=== PATIENT | female | born 1955 | race Caucasian/White ===

== ENCOUNTER → 2018-01-22 | Outpatient (CLI) | payer MEDICARE, OTHER ==
--- NOTE | 2018-01-22 10:36 | WWHP ---
[facility] - HISTORY AND PHYSICAL DATE OF DICTATION: 01/22/2018 CHIEF COMPLAINT: The patient is here for her routine gynecologic exam and mammogram. HPI: This is a 62-year-old G4, P3-0-1-3 with an LMP of 2003. The patient is without gynecologic complaints and denies any postmenopausal bleeding. PAST MEDICAL HISTORY: Elevated cholesterol, chronic low back problems and osteopenia. MEDICATIONS: 1. Lipitor 20 mg daily. 2. Multivitamin 1 daily. 3. Calcium supplement 400 mg b.i.d. 4. Magnesium supplement 250 mg daily. ALLERGIES: No known drug allergies. PAST SURGICAL HISTORY: Previous D and C, tubal ligation, ear surgery, and colonoscopy which was done in 2009. 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 SOCIAL HISTORY: She denies tobacco and drug use and has 0 to 1 alcohol-containing drinks per week. She has been since 1973 and she is retired. She is now expecting her 8th grandchild. FAMILY HISTORY: Father had an MA. Mother had gastric cancer. Maternal grandmother had breast cancer in her 80s. REVIEW OF SYSTEMS: She has lost 5 pounds over the last year. She denies respiratory or cardiac problems. CARDIAC: Occasional palpitations and she does see a business management associate for this. PHYSICAL EXAM: Blood pressure 116/81, height 5 feet 5 inches, weight 155 pounds. BMI 26. Temperature 97.9, pulse 76. This is a well-developed, well-nourished, white female, who is alert and oriented x3, in no acute distress. HEENT is within normal limits. NECK: Supple without mass or thyromegaly/ CHEST AND LUNGS: Clear to auscultation. HEART: Regular rate and rhythm. Breasts are without mass or discharge. Axillary exam is negative for adenopathy. Back negative for CVA tenderness. ABDOMEN: Soft, nontender, without palpable masses. PELVIC EXAM: External genitalia reveals [id number] atrophy without lesions. Cervix and vagina reveals edgr-ep-[id number] atrophy without lesions. There is no evidence of prolapse. The uterus is mid position nongravid size and nontender. There are no palpable adnexal masses or tenderness. Rectovaginal exam is negative for mass or tenderness and is negative for occult blood. EXTREMITIES: Nontender. IMPRESSION: 1. A 62-year-old menopausal female with normal gynecologic exam. 2. History of osteopenia. PLAN: 1. Pap smear was performed. 2. Self-breast examination was discussed. 3. Screening mammogram will be done today. 4. Osteoporosis prevention was discussed. 5. Bone density screening will be done next year. 6. She will return in 1 year. MMMIKELL / IJN: [id number] /
--- NOTE | 2018-01-24 08:04 | MM ---
Reason for exam: screening (asymptomatic). Last mammogram was performed 1 year and 2 months ago. History: Patient is postmenopausal. Family history of breast cancer in maternal aunt and breast cancer in grandmother at age 70. Took hormonal contraceptives for 11 years beginning at age 18. Took estrogen for 10 months beginning at age 51. Took progesterone for 10 months beginning at age 51. Physical Findings: A clinical breast exam by your physician is recommended on an annual basis and results should be correlated with mammographic findings. MG 3D Screening Mammo W/Cad Bilateral CC and MLO view(s) were taken. Prior study comparison: November 10, 2016, bilateral MG 3d screening mammo w/cad. September 22, 2015, right breast MG 3d work up w/cad RT. There are scattered fibroglandular densities. No significant changes when compared with prior studies. ASSESSMENT: Negative, BI-RAD 1 RECOMMENDATION: Routine screening mammogram of both breasts in 1 year.
== END | disposition home or self-care (01) ==
LOC: WWCWWP 09:10
PROVIDERS: ATTEND Obstetrics & Gynecology
DX: Z12.31 Encounter for screening mammogram for malignant neoplasm of breast (principal)
CPT/HCPCS: 77063; 77067

== ENCOUNTER 2019-01-01 08:03 | Day surgery (SDC) | payer MEDICARE, OTHER ==
[2018-12-31 09:49] VITALS: BMI 25.7
[~2019-01-01 08:03] MED LIST: LACTATED RINGERS 1,000 ML IV SCH; LIDOCAINE 1% 20 ML VIAL (10MG/ML) FOR IV START INTRADERMA PRN
[2019-01-01 08:29] VITALS: RESP 16; TEMP 98.1
[2019-01-01] MEDS ORDERED: PROPOFOL 10 MG/ML 20 ML VIAL IV ONE (09:27)
--- NOTE | 2019-01-01 09:53 | P.PCN ---
Date of Procedure: 01/01/19 Procedure(s) Performed: BRIEF HISTORY: Patient is a 63-year-old pleasant white female, scheduled for an elective colonoscopy as a part of screening for colorectal neoplasia. PROCEDURE PERFORMED: Colonoscopy. PREOPERATIVE DIAGNOSIS: Screening for colon cancer. IV sedation per Anesthesia. PROCEDURE: After informed consent was obtained, the patient, was brought into the endoscopy unit. IV sedation was administered by Anesthesia under continuous monitoring. Digital rectal examination was normal. Initially the Olympus CF- 160 flexible video colonoscope was then inserted in the rectum, gradually advanced into the cecum with mild to moderate difficulty. Careful examination was performed as the scope was gradually being withdrawn. Ileocecal valve and the appendiceal orifice were visualized and appeared normal. Prep was excellent. Mucosa of the cecum, ascending colon, transverse colon, descending colon, sigmoid colon, and rectum appeared normal. Scattered similar diverticulosis. Retroflexion was performed in the rectum and small internal hemorrhoids were seen. The patient tolerated the procedure well. IMPRESSION: Normal-appearing colon from rectum to cecum with no evidence of choledochal neoplasia. Scattered sigmoid diverticulosis. Small internal hemorrhoids RECOMMENDATIONS: Findings of this examination were discussed with the patient as well as her family. She was advised to have a repeat screening colonoscopy in 10 years.
[2019-01-01 10:15] VITALS: BP 161/81; PULSE 67
== END 2019-01-01 11:06 | disposition home or self-care (01) ==
LOC: ORWHC2ENDO 08:03
PROVIDERS: ATTEND Internal Medicine Gastroenterology
DX: Z12.11 Encounter for screening for malignant neoplasm of colon (principal); K57.30 Diverticulosis of large intestine without perforation or abscess without bleeding; K64.8 Other hemorrhoids; E78.5 Hyperlipidemia, unspecified; Z79.899 Other long term (current) drug therapy
CPT/HCPCS: J2704; G0121

== ENCOUNTER → 2019-03-19 | Outpatient (CLI) | payer MEDICARE, OTHER ==
[2019-03-19 11:58] VITALS: BP 134/77; PULSE 62; RESP 18; TEMP 97.1; BMI 26.2
--- NOTE | 2019-03-19 12:30 | P.HPOB ---
History of Present Illness H&P Date: 03/19/19 Chief Complaint: The patient is here for her routine gynecologic exam and ma mmogram. This is a 64-year-old with an LMP of 2003. The patient is without gynecologic complaints. Review of Systems She has gained 3 pounds over the last year. She denies respiratory, cardiac and G.I. problems. She denies maltreatment or problems with falling. : she denies any significant problems with urinary leakage. Past Medical History Past Medical History: Hyperlipidemia Additional Past Medical History / Comment(s): states hx of irregular heart beat- states magnesium helps. Chronic low back problems and osteopenia. 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 History of Any Multi-Drug Resistant Organisms: None Reported Past Surgical History: Tubal Ligation Additional Past Surgical History / Comment(s): D & C., RIGHT INNER EAR SURGERY. Colonoscopy 2019(2nd). Past Anesthesia/Blood Transfusion Reactions: No Reported Reaction, Family History of Problems w/ Anesthesia, Motion Sickness Additional Past Anesthesia/Blood Transfusion Reaction / Comment(s): PATIENT STATES HER RAMSEY HAD BAD REACTION TO ANESTHESIA AND WEARS A BRACELET-STATES RAMSEY HAD GALL BLADDER SURGERY AND IS PSEUDOCHOLINESTERASE DEFICIENT AND SHE CANNOT HAVE SUCCINYLCHOLINE. Past Psychological History: No Psychological Hx Reported Smoking Status: Never smoker Past Alcohol Use History: Occasional Past Drug Use History: None Reported Additional History: She has been since 1973 and is retired. She has 8 grandchildren. - Past Family History Mother Family Medical History: Cancer Additional Family Medical History / Comment(s): STOMACH CANCER Father Family Medical History: Myocardial Infarction ([place]) Grandmother Family Medical History: Cancer Additional Family Medical History / Comment(s): Breast cancer in her 80s. Medications and Allergies Home Medications Medication Instructions Recorded Confirmed Type Atorvastatin [Lipitor] 20 mg PO DAILY 12/31/18 03/19/19 History Magnesium 250 mg PO DAILY 12/31/18 03/19/19 History Multivitamins, Thera [Multivitamin 1 tab PO DAILY 12/31/18 03/19/19 History (formulary)] Calcium Carbonate/Vitamin D3 1 each PO 03/19/19 History [Calcium 500-Vit D3 600 Tablet] Allergies Allergy/AdvReac Type Severity Reaction Status Date / Time No Known Allergies Allergy Verified 03/19/19 11:54 Exam Vital Signs Temp Pulse Resp BP Pulse Ox 03/19/19 11:56 97.1 F L 62 18 134/77 88 L Intake and Output 03/18/19 03/19/19 03/19/19 22:59 06:59 14:59 Other: Weight 71.668 kg Height 5'5", weight 158 pounds, BMI 26.3. This is a well-developed well-nourished white female who is alert and oriented times 3 in no acute distress. HEENT: Within normal limits. NECK: Supple without mass or thyromegaly. CHEST AND LUNGS: Clear to auscultation. HEART: Regular rate and rhythm. BREASTS: Are without mass or discharge. AXILLARY EXAM: Negative for adenopathy. BACK: Negative for CVA tenderness. ABDOMEN: Soft, nontender, without palpable masses. PELVIC EXAM: Normal external genitalia with mild to moderate atrophy. Cervix and vagina appear normal with mild to moderate atrophy. There is no unusual discharge. There is no evidence of prolapse. The uterus is midposition, nongravid size and nontender. There are no palpable adnexal masses or tenderness. RECTAL EXAM: rectal exam was refused by the patient since she recently had a normal colonoscopy. EXTREMITIES: Nontender. IMPRESSION: 1. 64-year-old menopausal female with normal gynecologic exam. 2. History of osteopenia. PLAN: 1. Pap smear was deferred since she had a normal one on 01/22/2018. 2. Self breast awareness was discussed with the patient. 3. Screening mammogram will be done today. 4. Osteoporosis prevention was discussed. I have stressed the importance of adequate calcium, vitamin D and regular exercise. Recommended amounts of calcium and vitamin D were also discussed. Bone density testing will be done today. 5. She did receive a flu shot last fall. 6.She was advised to return in one year for her annual well woman exam.
--- NOTE | 2019-03-19 14:10 | BD ---
EXAMINATION TYPE: Axial Bone Density DATE OF EXAM: 03/19/2019 COMPARISON: NONE CLINICAL HISTORY: Height: 5 FT 5 IN Weight: 158 FRAX RISK QUESTIONS: RISK FACTORS HISTORY OF: Family History of Osteoporosis: YES Active: YES Postmenopausal woman: AGE 51 MEDICATIONS: Additional Medications: ATORVASTATIN Additional History: EXAM MEASUREMENTS: Bone mineral densitometry was performed using the [employer] System. Bone mineral density as measured about the Lumbar spine is: ----- L1-L4(G/cm2): 0.940 T Score Values are as follows: ----- L2: -2.0 ----- L3: -2.1 ----- L4: -1.7 ----- L1-L4: -2.0 Bone mineral density has: DECREASED -1.0 % since study of: 2015 Bone mineral density about the R hip (g/cm2): 0.802 Bone mineral density about the L hip (g/cm2): 0.778 T Score values are as follows: -----R Neck: -1.7 -----L Neck: -1.9 -----R Total: -1.9 -----L Total: -1.4 Bone mineral density has: DECREASED -0.1 % since study of: 2015 IMPRESSION: Osteopenia NOTE: T-SCORE=SD OF THE YOUNG ADULT MEAN.
--- NOTE | 2019-03-21 12:16 | MM ---
Reason for exam: screening (asymptomatic). Last mammogram was performed 1 year and 2 months ago. History: Patient is postmenopausal. Family history of breast cancer in maternal aunt and breast cancer in grandmother at age 70. Took hormonal contraceptives for 11 years beginning at age 18. Took estrogen for 10 months beginning at age 51. Took progesterone for 10 months beginning at age 51. Physical Findings: A clinical breast exam by your physician is recommended on an annual basis and results should be correlated with mammographic findings. MG 3D Screening Mammo W/Cad Bilateral CC and MLO view(s) were taken. Prior study comparison: January 22, 2018, bilateral MG 3d screening mammo w/cad. November 10, 2016, bilateral MG 3d screening mammo w/cad. There are scattered fibroglandular densities. No significant changes when compared with prior studies. ASSESSMENT: Benign, BI-RAD 2 RECOMMENDATION: Routine screening mammogram of both breasts in 1 year.
== END ==
LOC: WWCWWP 11:06
PROVIDERS: ATTEND Obstetrics & Gynecology
DX: Z12.31 Encounter for screening mammogram for malignant neoplasm of breast (principal); M85.80 Other specified disorders of bone density and structure, unspecified site; Z78.0 Asymptomatic menopausal state
CPT/HCPCS: 77063; 77067; 77080

== ENCOUNTER → 2021-01-18 | Outpatient (CLI) | payer MEDICARE ==
--- NOTE | 2021-01-18 13:19 | EST ---
EXERCISE STRESS AGE: 65 SEX: Female HT: 5'5"` WT: 149 lbs. PROTOCOL: Boby STAGE: 2 DURATION OF EXERCISE: 6 minutes HEART RATE REST: 71 BLOOD PRESSURE REST: 133/85 MAXIMUM HEART RATE ACHIEVED: 151 MAXIMUM BLOOD PRESSURE: 199/82 85% MPHR: 130 100% MPHR: 153 METS: 8.3 INDICATIONS: Chest pain. CLINICAL INFORMATION: STRESS DATA: Heart rate 71, pressure is 133/85 mmHg. Baseline EKG showed sinus mechanism. The patient exercised on the treadmill according to Boby protocol for a total of 6 minutes and achieved 8.3 METs. Max heart rate was 151, which is about 99% of maximum predicted heart rate. Maximum blood pressure was 199/82 mmHg. Clinically, the patient did not have any symptoms of chest pain or chest discomfort and the EKG did not show any significant ST or T-wave abnormalities concerning for ischemia. CONCLUSION: 1. Excellent exercise tolerance. 2. Normal EKG in response to exercise. MMODL / IJN: [id number] /
== END | disposition home or self-care (01) ==
LOC: RADNMMAIN 08:39
PROVIDERS: ATTEND Internal Medicine
DX: I21.29 ST elevation (STEMI) myocardial infarction involving other sites (principal)
CPT/HCPCS: 93017

== ENCOUNTER → 2021-06-27 | Outpatient (CLI) | payer MEDICARE ==
--- NOTE | 2021-06-27 14:04 | BD ---
EXAMINATION TYPE: Axial Bone Density DATE OF EXAM: 06/27/2021 COMPARISON: 03/19/2019 CLINICAL HISTORY: Height: 65 IN Weight: 153 LBS RISK FACTORS HISTORY OF: Family History of Osteoporosis: YES MOTHER Active: YES Postmenopausal woman: AGE 50 Take estrogen and/or progesterone medications: NOT NOW How long: TOOK CONTROL PILLS FOR 10 YEARS MEDICATIONS: Additional Medications: CALCIUM, MULTI VIT, ATORVASTATIN, MAGNESIUM, IRON, EXAM MEASUREMENTS: Bone mineral densitometry was performed using the [employer] System. Bone mineral density as measured about the Lumbar spine is: ----- L1-L4(G/cm2): 0.895 T Score Values are as follows: ----- L2: -2.2 ----- L3: -2.3 ----- L4: -2.5 ----- L1-L4: -2.4 Bone mineral density has: Decreased -4.9% since study of: 03/19/2019 Bone mineral density about the R hip (g/cm2): 0.792 Bone mineral density about the L hip (g/cm2): 0.809 T Score values are as follows: -----R Neck: -1.8 -----L Neck: -1.6 -----R Total: -2.1 -----L Total: -1.5 Bone mineral density has: Decreased -1.5% since study of: 03/19/2019 IMPRESSION: Osteopenia (T Score between -2.5 and -1). There is slightly increased risk of fracture and the patient may be considered for treatment. Re-Screen 2-5 years. NOTE: T-SCORE=SD OF THE YOUNG ADULT MEAN.
--- NOTE | 2021-06-28 09:11 | MM ---
Reason for exam: screening (asymptomatic). Last mammogram was performed 1 year ago. History: Patient is postmenopausal. Family history of breast cancer in maternal aunt and breast cancer in grandmother at age 70. Took hormonal contraceptives for 11 years beginning at age 18. Took estrogen for 10 months beginning at age 51. Took progesterone for 10 months beginning at age 51. MG 3D Screening Mammo W/Cad Bilateral CC and MLO view(s) were taken. Prior study comparison: June 15, 2020, bilateral MG 3d screening mammo w/cad. March 19, 2019, bilateral MG 3d screening mammo w/cad. There are scattered fibroglandular densities. Benign appearing bilateral calcifications. There is chronic nodularity in the right breast, stable. No significant changes when compared with prior studies. ASSESSMENT: Benign, BI-RAD 2 RECOMMENDATION: Routine screening mammogram of both breasts in 1 year.
== END | disposition home or self-care (01) ==
LOC: RADMAMWWP 09:41
PROVIDERS: ATTEND Internal Medicine
DX: Z12.31 Encounter for screening mammogram for malignant neoplasm of breast (principal); Z78.0 Asymptomatic menopausal state; Z80.3 Family history of malignant neoplasm of breast; Z13.820 Encounter for screening for osteoporosis; M85.80 Other specified disorders of bone density and structure, unspecified site
CPT/HCPCS: 77063; 77067; 77080

== ENCOUNTER → 2022-08-01 | Outpatient (CLI) | payer MEDICARE ==
[2022-08-01 09:31] VITALS: BP 122/82; PULSE 71; RESP 17; TEMP 98.2
--- NOTE | 2022-08-01 10:26 | P.HPOB ---
History of Present Illness H&P Date: 08/01/22 Chief Complaint: The patient is here for her routine gynecologic exam and ma mmogram. This is a 67-year-old 013 with an LMP of 2003. The patient is without gynecologic complaints. Review of Systems The patient's weight has been stable over the last 2 years. She denies respiratory, cardiac, or G.I. problems. Past Medical History Past Medical History: Hyperlipidemia Additional Past Medical History / Comment(s): states hx of irregular heart beat- states magnesium helps. Chronic low back problems and osteopenia. 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 History of Any Multi-Drug Resistant Organisms: None Reported Past Surgical History: Tubal Ligation Additional Past Surgical History / Comment(s): D & C., RIGHT INNER EAR SURGERY. Colonoscopy 2019(2nd, next after 10yr). Past Anesthesia/Blood Transfusion Reactions: No Reported Reaction, Family History of Problems w/ Anesthesia, Motion Sickness Additional Past Anesthesia/Blood Transfusion Reaction / Comment(s): PATIENT STATES HER RAMSEY HAD BAD REACTION TO ANESTHESIA AND WEARS A BRACELET-STATES RAMSEY HAD GALL BLADDER SURGERY AND IS PSEUDOCHOLINESTERASE DEFICIENT AND SHE CANNOT HAVE SUCCINYLCHOLINE. Past Psychological History: No Psychological Hx Reported Smoking Status: Never smoker Past Alcohol Use History: Occasional Past Drug Use History: None Reported Additional History: She has been since 1973 and is retired. She previously worked for [employer]. She has 8 grandchildren. - Past Family History Mother Family Medical History: Cancer Additional Family Medical History / Comment(s): STOMACH CANCER Father Family Medical History: Myocardial Infarction ([place]) Grandmother Family Medical History: Cancer Additional Family Medical History / Comment(s): Breast cancer in her 80s. Medications and Allergies Home Medications Medication Instructions Recorded Confirmed Type Atorvastatin [Lipitor] 40 mg PO DAILY 12/31/18 08/01/22 History Magnesium 250 mg PO DAILY 12/31/18 08/01/22 History Multivitamins, Thera [Multivitamin 1 tab PO DAILY 12/31/18 08/01/22 History (formulary)] Calcium Carbonate/Vitamin D3 1 each PO DAILY 03/19/19 08/01/22 History [Calcium 500-Vit D3 600 Tablet] Ferrous Sulfate [Iron (65 MG 65 mg PO DAILY 08/01/22 08/01/22 History Elemental)] Allergies Allergy/AdvReac Type Severity Reaction Status Date / Time animal dander Allergy Wheezing Unverified 08/01/22 09:25 house dust mite Allergy Wheezing Unverified 08/01/22 09:25 tree and shrub pollen Allergy Wheezing Unverified 08/01/22 09:25 Exam Vital Signs Temp Pulse Resp BP Pulse Ox 08/01/22 09:28 98.2 F 71 17 122/82 98 Intake and Output 07/31/22 08/01/22 08/01/22 22:59 06:59 14:59 Other: Weight 72.121 kg Height 5 feet 5 inches, weight 159 pounds, BMI 26.5. This is a well-developed well-nourished white female who is alert and oriented times 3 in no acute distress. HEENT: Within normal limits. NECK: Supple without mass or thyromegaly. CHEST AND LUNGS: Clear to auscultation. HEART: Regular rate and rhythm. BREASTS: Are without mass or discharge. AXILLARY EXAM: Negative for adenopathy. BACK: Negative for CVA tenderness. ABDOMEN: Soft, nontender, without palpable masses. PELVIC EXAM: Normal external genitalia with mild atrophy. Just inside of the vulva, there is a white area involving the remnant of the hymenal ring. This appears different than the left side. The area is smooth, nonerythematous, and nontender. This measures approximately 9 x 3 x 3 mm. Cervix and vagina appear normal with mild atrophy. There is no unusual discharge. There is no evidence of prolapse. The uterus is midposition, nongravid size and nontender. There are no palpable adnexal masses or tenderness. RECTAL EXAM: Rectovaginal exam is negative for mass or tenderness and is negative for occult blood. EXTREMITIES: Nontender. IMPRESSION: 1. 67-year-old menopausal female with whitish area involving the hymenal ring reminiscent on the right side of the posterior introitus. Differential diagnosis will include increased atrophic change as well as the possibility of dysplastic neoplasia of the vaginal mucosa. 2. History of osteopenia. PLAN: 1. Pap smears have been discontinued. She has had adequate screening over the years with no history of cervical neoplasia. 2. Self breast awareness was discussed with the patient. We have also discussed symptoms associated with inflammatory breast cancer. 3. Screening mammogram will be done today. 4. The patient has been scheduled for a vaginal mucosa biopsy at that whitish area near the introitus. The appointment is for 9 AM on 08/02/2022. 5. Osteoporosis prevention was discussed. I have stressed the importance of adequate calcium, vitamin D and regular exercise. Recommended amounts of calcium and vitamin D were also discussed. I have recommended repeating bone density testing in 1 year. Her last one was done on 06/27/2021. 6. The patient was advised to return in 1-2 years for her well woman examination.
== END ==
LOC: WWCWWP 09:09
PROVIDERS: ATTEND Obstetrics & Gynecology
DX: Z01.419 Encounter for gynecological examination (general) (routine) without abnormal findings (principal); Z12.31 Encounter for screening mammogram for malignant neoplasm of breast; Z78.0 Asymptomatic menopausal state; E78.5 Hyperlipidemia, unspecified; Z87.39 Personal history of other diseases of the musculoskeletal system and connective tissue; Z91.09 Other allergy status, other than to drugs and biological substances
CPT/HCPCS: 77063; 77067

== ENCOUNTER → 2022-08-02 | Day surgery (SDC) | payer MEDICARE ==
[2022-08-02 09:11] VITALS: BP 146/84; PULSE 85; RESP 17; TEMP 99.1
--- NOTE | 2022-08-02 09:50 | P.PCN ---
Date of Procedure: 08/02/22 Preoperative Diagnosis: Right vaginal introitus lesion of uncertain behavior Postoperative Diagnosis: Same Procedure(s) Performed: Vaginal biopsy Anesthesia: local Surgeon: Didier Clemens Estimated Blood Loss (ml): 1 Pathology: other (Vaginal lesion biopsy) Condition: stable Disposition: same day Indications for Procedure: This was a 67-year-old menopausal female who was found to have an area of white mucosa at the right posterior introitus measuring approximately 9 x 3 x 3 mm. This was at the level of the hymenal ring remanent and was more prominent and had a different color compared to the opposite side. Due to its appearance and uncertain behavior the biopsy was scheduled. Operative Findings: Similar findings as described in the indications section. Description of Procedure: The procedure was discussed with the patient as well as possible risks and complications. All questions were answered. Preprocedure blood pressure was 146/84 with pulse of 85 and temperature of 99.1. The patient was placed in the lithotomy position and the area was prepped with Betadine solution. Approximately 0.5 mL of 1% lidocaine was used for local anesthesia. Following determination of adequate anesthesia a biopsy of the lesion was taken using a cervical biopsy instrument. A small amount of bleeding was noted and this was made hemostatic with a silver nitrate stick. The patient tolerated the procedure well. The biopsy was sent for pathological examination. The postprocedure blood pressure was 138/88 and pulse was 83. The patient was instructed to not do strenuous activity such as running or walking for distance for 1 week. She is also instructed to avoid all sexual activity for 1 week. Is instructed to call if heavy bleeding, unusual pain, fever or problems.
--- NOTE | 2022-08-08 09:16 | P.PN ---
Progress Note - Text Progress Note Date: 08/08/22 OUTPATIENT FOLLOW-UP NOTE TEST(S)/RESULTS: Vaginal biopsy done on 08/02/2022 shows atrophy with findings consistent with lichen sclerosus. There is also mild superficial squamous atypia. METHOD OF NOTIFICATION: The patient was notified by phone. PATIENT COMMENTS: The patient states she has not had any problems after the biopsy. DIAGNOSIS: Asymptomatic lichen sclerosis at the introitus DISCUSSION: We have discussed the nature of lichen sclerosus and how this can be a chronic condition. She denies any pruritus. She was instructed to call she's having problems with pruritus or if she notices any focal vulvar lesions. She understands that this can slightly increase the risk for vulvar cancer. I have recommended at least yearly exams and to call if she notices any focal lesions or changes. PLAN: As above. Patient information on lichen sclerosis will be mailed to the patient.
== END ==
LOC: WWCWWP 09:04
PROVIDERS: ATTEND Obstetrics & Gynecology
DX: L90.0 Lichen sclerosus et atrophicus (principal)
CPT/HCPCS: 88305

== ENCOUNTER → 2023-08-21 | Outpatient (CLI) | payer MEDICARE ==
--- NOTE | 2023-08-21 20:07 | BD ---
EXAMINATION TYPE: Axial Bone Density DATE OF EXAM: 08/21/2023 CLINICAL HISTORY: 68 years old Female. ICD-10 CODE: M85.852 OSTEOPENIA LT HIP Height: 5 ft 4 1/2 in Weight: 159 FRAX RISK QUESTIONS: Alcohol (3 or more units per day): no Family History (Parent hip fracture): no Glucocorticoids (More than 3mos): no (Ex: prednisone, prednisolone, methylprednisolone, dexamethasone, and hydrocortisone). History of Fracture in Adulthood: no Secondary Osteoporosis: 1. Type 1 Diabetes: no 2. Hyperthyroidism: no 3. Menopause before 45: no 4. Malnutrition: no 5. Chronic liver disease: no Rheumatoid Arthritis: no Current Tobacco Use: no RISK FACTORS HISTORY OF: Surgery to Spine/Hip(right/left)/Wrist (right/left): no Family History of Osteoporosis: yes Active: yes Diet low in dairy products/other sources of calcium: no Postmenopausal woman: yes Take estrogen and/or progesterone medications: no Lost more than 2 inches in height since high school: no Frequent falls: no Poor Health: good Hyperparathyroidism: no Adrenal Insufficiency: no MEDICATIONS: Osteoporosis Medications: yes Which medication: fosamax How Lon/23 Additional Medications: fosamax, atorvastatan Additional History: EXAM MEASUREMENTS: Bone mineral densitometry was performed using the [employer] System. Bone mineral density as measured about the Lumbar spine is: ----- L1-L4(G/cm2): 0.939 T Score Values are as follows: ----- L1: -2.5 ----- L2: -1.8 ----- L3: -1.8 ----- L4: -2.2 ----- L1-L4: -2.0 Z Score Values are as follows: ----- L1: -1.0 ----- L2: -0.4 ----- L3: -0.3 ----- L4: -0.8 ----- L1-L4: -0.6 Bone mineral density has: increased 3.3 % since study of: 2020 Bone mineral density about the R hip (g/cm2): 0.718 Bone mineral density about the L hip (g/cm2): 0.775 T Score values are as follows: -----R Neck: -2.3 -----L Neck: -1.9 -----R Total: -2.1 -----L Total: -1.5 Z Score values are as follows: -----R Neck: -0.7 -----L Neck: -0.3 -----R Total: -0.8 -----L Total: -0.2 Bone mineral density has: decreased -0.3 % since study of: 2020 FRAX%s: The graph provided illustrates a 13.8 % chance for a major osteoporotic fx and a 3.3 % chance for the hips probability for fx in 10 years time. IMPRESSION: Osteopenia (T Score between -2.5 and -1). There is slightly increased risk of fracture and the patient may be considered for treatment. Re-Screen 2-5 years. NOTE: T-SCORE=SD OF THE YOUNG ADULT MEAN.
--- NOTE | 2023-08-22 08:00 | MM ---
Reason for Exam: Screening (asymptomatic). Last mammogram was performed 1 year(s) and 1 month(s) ago. Patient History: Menarche at age 12. First Full-Term at age 21. Postmenopausal. Patient has history of breast feeding. Estrogen for 10 months from age 51 until age 52. Progesterone for 10 months from age 51 until age 52. Hormonal Contraceptives for 11 years from age 18 until age 29. Maternal grandmother had breast cancer, age 70. Maternal aunt had breast cancer. Risk Values: Soha 5 year model risk: 1.4%. NCI Lifetime model risk: 4.1%. Prior Study Comparison: 06/15/2020 Bilateral Screening Mammogram, [facility]. 06/27/2021 Bilateral Screening Mammogram, [facility]. 08/01/2022 Bilateral MG 3D screening mammo w/cad, [facility]. Tissue Density: There are scattered fibroglandular densities. Findings: Analyzed By CAD. There is no suspicious group of microcalcifications or new suspicious mass in either breast. Chronic nodularity within the right breast. Overall Assessment: Benign, BI-RAD 2 Management: Screening Mammogram of both breasts in 1 year. A clinical breast exam by your physician is recommended on an annual basis and results should be correlated with mammographic findings. Note on Soha scores and lifetime risk: 1. A Soha score greater than 3% is considered moderate risk. If this is the case, consider specialist referral to assess eligibility for a risk reducing agent. If overall lifetime risk for the development of breast cancer is 20% or higher, the patient may qualify for future screening with alternating mammogram and breast MRI. Electronically signed and approved by: Scott Trent D.O.
== END | disposition home or self-care (01) ==
LOC: RADMAMWWP 10:10
PROVIDERS: ATTEND Internal Medicine
DX: Z12.31 Encounter for screening mammogram for malignant neoplasm of breast (principal); M85.89 Other specified disorders of bone density and structure, multiple sites; M81.0 Age-related osteoporosis without current pathological fracture; Z78.0 Asymptomatic menopausal state; Z80.3 Family history of malignant neoplasm of breast
CPT/HCPCS: 77063; 77067; 77080

== ENCOUNTER → 2024-08-26 | Outpatient (CLI) | payer MEDICARE ==
--- NOTE | 2024-08-26 17:51 | CA ---
Transthoracic Echo Report Name: Celestina Dye Age: 69 Gender: F : 1955 Exam Date: 08/26/2024 13:57 Exam Location: [facility] Ht (in): 65 Wt (lb): 160 Ordering Physician: Michelle Magdaleno MD Attending/Referring Phys: Loft Worker Head Chayito Ramirez RDCS Procedure CPT: Indications: I34.0 NONRHEUMATIC MITRAL (VALVE) [id number] Cardiac Hx: Technical Quality: Good Contrast 1: Total Dose (mL): Contrast 2: Total Dose (mL): MEASUREMENTS (Male / Female) Normal Values 2D ECHO LV Diastolic Diameter PLAX 3.9 cm 4.2 - 5.9 / 3.9 - 5.3 cm LV Systolic Diameter PLAX 2.5 cm IVS Diastolic Thickness 0.9 cm 0.6 - 1.0 / 0.6 - 0.9 cm LVPW Diastolic Thickness 0.9 cm 0.6 - 1.0 / 0.6 - 0.9 cm LV Relative Wall Thickness 0.5 RV Internal Dim ED PLAX 2.7 cm LA Systolic Diameter LX 3.0 cm 3.0 - 4.0 / 2.7 - 3.8 cm LV Diastolic Volume MOD 4C 73.0 cm??? LV Systolic Volume MOD 4C 25.1 cm??? LV Ejection Fraction MOD 4C 65.6 % LV Cardiac Index MOD 4C 1560.3 cm???/min???m??? LV Diastolic Length 4C 7.0 cm LV Systolic Length 4C 5.3 cm LV Diastolic Volume MOD 2C 45.1 cm??? LV Systolic Volume MOD 2C 15.2 cm??? LV Ejection Fraction MOD 2C 66.3 % LV Cardiac Index MOD 2C 975.5 cm???/min???m??? LV Diastolic Length 2C 7.0 cm LV Systolic Length 2C 5.5 cm LA Volume 35.8 cm??? 18 - 58 / 22 - 52 cm??? LA Volume Index 19.5 cm???/m??? 16 - 28 cm???/m??? M-MODE Aortic Root Diameter MM 3.1 cm AV Cusp Separation MM 2.1 cm DOPPLER AV Peak Velocity 124.9 cm/s AV Peak Gradient 6.2 mmHg MV Area PHT 2.5 cm??? Mitral E Point Velocity 90.7 cm/s Mitral A Point Velocity 110.1 cm/s Mitral E to A Ratio 0.8 MV Deceleration Time 303.0 ms TR Peak Velocity 212.9 cm/s TR Peak Gradient 18.1 mmHg Right Ventricular Systolic Press 22.6 mmHg FINDINGS Left Ventricle Left ventricular ejection fraction is estimated at 55-60 %. Left ventricular cavity size normal. Left ventricular wall thickness normal. Normal left ventricular wall motion. Right Ventricle Normal right ventricular size. Right ventricular systolic pressure within normal limits. Right Atrium Normal right atrial size. No right atrial thrombus or mass seen. Left Atrium Normal left atrial size. No left atrial thrombus or mass present. Mitral Valve Structurally normal mitral valve. Mild to moderate mitral regurgitation. Thickened mitral valve leaflets Aortic Valve Trileaflet aortic valve. No aortic valve stenosis or regurgitation. Tricuspid Valve Structurally normal tricuspid valve. Moderate tricuspid regurgitation. Pulmonic Valve Structurally normal pulmonic valve. Mild pulmonic regurgitation. Pericardium No pericardial or pleural effusion. Aorta Normal size aortic root and proximal ascending aorta. CONCLUSIONS 1. Normal left ventricular size and systolic function 2. [id number] mitral regurgitation with moderate tricuspid regurgitation and no evidence of pulmonary hypertension Previewed by: Dr. Yue Loza MD (Electronically Signed) Final Date: 26 August 2024 17:50
--- NOTE | 2024-08-26 19:10 | US ---
EXAMINATION TYPE: US carotid duplex BILAT DATE OF EXAM: 08/26/2024 COMPARISON: US carotid 07/12/2022 CLINICAL INDICATION: Female, 69 years old with history of [id number] CAROTID STENOSIS BILATERAL; Stenosis TECHNIQUE: Grayscale, color Doppler and spectral Doppler evaluation of the bilateral carotid systems and vertebral arteries. Indirect Doppler criteria was utilized. 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 Criteria for Assigning % of Stenosis / Diameter reduction (Estimation based on the indirect measurements of the internal carotid artery velocities (ICA PSV). 1. Normal (no stenosis)=ICA PSV < 125 cm/s: ratio < 2.0: ICA EDV<40 cm/s. 2. Less than 50% stenosis=ICA PSV < 125 cm/s: ratio < 2.0: ICA EDV<40 cm/s. 3. 50 to 69% stenosis=ICA PSV of 125 to 230 cm/s: ration 2.0 ? 4.0: ICA EDV 40-100 cm/s. 4. Greater than 70% stenosis to near occlusion= ICA PSV > 230 cm/s: ratio > 4.0: ICA EDV > 100 cm/s. 5. Near occlusion= ICA PSV velocities may be low or undetectable: variable ratio and ICA EDV. 6. Total occlusion=unable to detect flow. [facility], , 08/26/2024 7:08 PM
== END | disposition home or self-care (01) ==
LOC: RADECHMAIN 13:42
PROVIDERS: ATTEND Internal Medicine
DX: I65.23 Occlusion and stenosis of bilateral carotid arteries (principal); I08.1 Rheumatic disorders of both mitral and tricuspid valves
CPT/HCPCS: 93306; 93880

== ENCOUNTER → 2024-08-26 | Outpatient (CLI) | payer MEDICARE ==
[2024-08-26 12:58] VITALS: BP 144/60; PULSE 80; RESP 16; TEMP 98.1
--- NOTE | 2024-08-26 13:23 | P.HPOB ---
History of Present Illness H&P Date: 08/26/24 Chief Complaint: The patient is here for her routine gynecologic exam and ma mmogram. This is a 69-year-old -0-1-3 with an LMP of 2003. The patient is without gynecologic complaints. She has been on Fosamax for osteopenia since January 2023. This has been prescribed by her PCP. Review of Systems The patient has gained 4 pounds over the last 2 years. She denies respiratory, cardiac, or G.I. problems. Past Medical History Past Medical History: Hyperlipidemia Additional Past Medical History / Comment(s): states hx of irregular heart beat- states magnesium helps. Chronic low back problems and osteopenia(on Fosamax since 01/2023). 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 History of Any Multi-Drug Resistant Organisms: None Reported Past Surgical History: Tubal Ligation Additional Past Surgical History / Comment(s): D & C., RIGHT INNER EAR SURGERY. Colonoscopy 2019(2nd, next after 10yr). Past Anesthesia/Blood Transfusion Reactions: No Reported Reaction, Family History of Problems w/ Anesthesia, Motion Sickness Additional Past Anesthesia/Blood Transfusion Reaction / Comment(s): PATIENT STATES HER RAMSEY HAD BAD REACTION TO ANESTHESIA AND WEARS A BRACELET-STATES RAMSEY HAD GALL BLADDER SURGERY AND IS PSEUDOCHOLINESTERASE DEFICIENT AND SHE CANNOT HAVE SUCCINYLCHOLINE. Past Psychological History: No Psychological Hx Reported Smoking Status: Never smoker Past Alcohol Use History: Occasional (2 drinks per month) Past Drug Use History: None Reported Additional History: She has been since 1973 and is retired. She previously worked at [employer]. She has 8 grandchildren. - Past Family History Mother Family Medical History: Cancer Additional Family Medical History / Comment(s): STOMACH CANCER Father Family Medical History: Myocardial Infarction ([place]) Grandmother Family Medical History: Cancer Additional Family Medical History / Comment(s): Breast cancer in her 80s. Medications and Allergies Home Medications Medication Instructions Recorded Confirmed Type Atorvastatin [Lipitor] 40 mg PO DAILY 12/31/18 08/26/24 History Magnesium 250 mg PO DAILY 12/31/18 08/26/24 History Multivitamins, Thera [Multivitamin 1 tab PO DAILY 12/31/18 08/26/24 History (formulary)] Calcium Carbonate/Vitamin D3 1 each PO DAILY 03/19/19 08/26/24 History [Calcium 500-Vit D3 600 Tablet] Ferrous Sulfate [Iron (65 MG 65 mg PO DAILY 08/01/22 08/26/24 History Elemental)] Alendronate Sodium [Fosamax] 70 mg PO WEEKLY 08/26/24 08/26/24 History Cyanocobalamin [Vitamin B-12] 500 mcg PO DAILY 08/26/24 08/26/24 History Pyridoxine HCl (Vitamin B6) 1 tab PO DAILY 08/26/24 08/26/24 History [Vitamin B-6] Allergies Allergy/AdvReac Type Severity Reaction Status Date / Time animal dander Allergy Wheezing Unverified 08/26/24 12:51 house dust mite Allergy Wheezing Unverified 08/26/24 12:51 tree and shrub pollen Allergy Wheezing Unverified 08/26/24 12:51 Exam Vital Signs Temp Pulse Resp BP Pulse Ox 08/26/24 12:54 98.1 F 80 16 144/60 97 Intake and Output 08/25/24 08/26/24 08/26/24 22:59 06:59 14:59 Other: Weight 73.936 kg Height 5 feet 5 inches, weight 163 pounds, BMI 27.1 This is a well-developed well-nourished white female who is alert and oriented times 3 in no acute distress. HEENT: Within normal limits. NECK: Supple without mass or thyromegaly. CHEST AND LUNGS: Clear to auscultation. HEART: Regular rate and rhythm. BREASTS: Are without mass or discharge. AXILLARY EXAM: Negative for adenopathy. BACK: Negative for CVA tenderness. ABDOMEN: Soft, nontender, without palpable masses. PELVIC EXAM: Normal external genitalia with mild to moderate atrophy. There are no lesions and no pallor noted. Cervix and vagina appear normal with mild to moderate atrophy. There is no unusual discharge. There is no evidence of prolapse. The uterus is midposition, nongravid size and nontender. There are no palpable adnexal masses or tenderness. RECTAL EXAM: Rectovaginal exam is negative for mass or tenderness and is negative for occult blood. There is an external hemorrhoid measuring approximately 1 cm which is mildly tender. EXTREMITIES: Nontender. IMPRESSION: 1. 69-year-old menopausal female with normal gynecologic exam. 2. Osteopenia and has been on Fosamax since January 2023 through her PCP. 3. Previous mild lichen sclerosus of the vulva with no significant physical findings on exam today. She is having no symptoms as well. PLAN: 1. Pap smears have been discontinued. 2. Self breast awareness was discussed with the patient. We have also discussed symptoms associated with inflammatory breast cancer. 3. Screening mammogram will be done today. 4. Osteoporosis prevention was discussed. I have stressed the importance of adequate calcium, vitamin D and regular exercise. Recommended amounts of calcium and vitamin D were also discussed. She had a bone density test on 08/21/2023. She will continue the Fosamax and bone density testing as recommended by her PCP. 5. The patient was advised to return in 1-2 years for her well woman examination.
--- NOTE | 2024-08-28 19:58 | MM ---
Reason for Exam: Screening (asymptomatic). Last screening mammogram was performed 12 month(s) ago. Patient History: Menarche at age 12. First Full-Term at age 21. Postmenopausal. Patient has history of breast feeding. Estrogen for 10 months from age 51 until age 52. Progesterone for 10 months from age 51 until age 52. Hormonal Contraceptives for 11 years from age 18 until age 29. Maternal grandmother had breast cancer, age 70. Maternal aunt had breast cancer. Risk Values: Soha 5 year model risk: 1.4%. NCI Lifetime model risk: 4.0%. Prior Study Comparison: 11/10/2016 Bilateral Screening Mammogram, [facility]. 01/22/2018 Bilateral Screening Mammogram, [facility]. 03/19/2019 Bilateral Screening Mammogram, [facility]. 06/15/2020 Bilateral Screening Mammogram, [facility]. 06/27/2021 Bilateral Screening Mammogram, [facility]. 08/01/2022 Bilateral MG 3D screening mammo w/cad, [facility]. 08/21/2023 Bilateral MG 3D screening mammo w/cad, [facility]. Tissue Density: The breasts are almost entirely fatty. Findings: Analyzed By CAD. There is no suspicious group of microcalcifications or new suspicious mass in either breast. Overall Assessment: Negative, BI-RAD 1 Management: Screening Mammogram of both breasts in 1 year. . Patient should continue monthly self-breast exams. A clinical breast exam by your physician is recommended on an annual basis. This exam should not preclude additional follow-up of suspicious palpable abnormalities. Note on Soha scores and lifetime risk: 1. A Soha score greater than 3% is considered moderate risk. If this is the case, consider specialist referral to assess eligibility for a risk reducing agent. 2. If overall lifetime risk for the development of breast cancer is 20% or higher, the patient may qualify for future screening with alternating mammogram and breast MRI. [facility], , 08/28/2024 7:56 PM. Electronically signed and approved by: Celeste Larsen M.D. Radiologist
== END ==
LOC: WWCWWP 12:30
PROVIDERS: ATTEND Obstetrics & Gynecology
DX: Z12.31 Encounter for screening mammogram for malignant neoplasm of breast (principal); M85.80 Other specified disorders of bone density and structure, unspecified site; N90.4 Leukoplakia of vulva; L90.0 Lichen sclerosus et atrophicus; Z78.0 Asymptomatic menopausal state; Z80.3 Family history of malignant neoplasm of breast; Z91.09 Other allergy status, other than to drugs and biological substances; Z91.048 Other nonmedicinal substance allergy status
CPT/HCPCS: 77063; 77067